=== PATIENT | male | born 1955 | race Asian ===

== ENCOUNTER 2020-02-04 11:56 | Inpatient (IN) | payer BC, SELFPAY ==
[~2020-02-04] VITALS: Ht 184.2 cm; Wt 69.5 kg
[2020-02-04] MEDS ORDERED: ACETAMINOPHEN 650 mg PER 20 mL UD PO ONE (12:15)
[2020-02-04 12:30] LABS: Basophils # (auto) 0 10 ^3/uL (0-0.2); Basophils % (auto) 0.2 % (0.0-2.0); Eosinophils # (auto) 0 10 ^3/uL (0-0.8); Lymphocytes # (auto) 0.4 10 ^3/uL (0.4-5.4); Mean Corpuscular Volume 66.9 fL (80.0-100.0); Neutrophils # (auto) 7.1 10 ^3/uL (1.6-8.6)
[2020-02-04 12:32] LABS: Eosinophils % (auto) 0.4 % (0.0-7.0); Hematocrit 39.2 % (41.0-53.0); Lymphocytes % (auto) 4.9 % (10.0-50.0); Mean Corpuscular Hemoglobin 20.5 pg (28.0-32.0); Mean Corpuscular Hgb Conc. 30.6 g/dL (32.0-36.0); Monocytes # (auto) 0.3 10 ^3/uL (0-1.3); Neutrophils % (auto) 90.5 % (37.0-80.0); Nucleated Red Blood Cells % 0.1 %; Platelet Count (auto) 152 10^3/uL (140-450); Red Blood Cells 5.86 10^6/uL (4.5-5.90); Red Cell Distribution Width 14.5 % (11.8-14.3); White Blood Cell 7.9 10^3/uL (4.4-10.8)
[2020-02-04] MEDS ORDERED: cefTRIAXone 1GM/50ML D5W 50 ML IV ONE ×2 (12:41→12:45)
[2020-02-04] MEDS ORDERED: ASPirin 81 mg TAB PO ONE (12:45)
[2020-02-04] MEDS ORDERED: AZITHROMYCIN 500MG/ 250ML 250 ML IV ONE (12:45)
[2020-02-04 12:47] LABS: Anion Gap 7 (5-15); Blood Urea Nitrogen 19 mg/dL (7-18); Carbon Dioxide 24 mmol/L (21-32); Chloride 106 mmol/L (98-107); Glucose 110 mg/dL (74-106); Magnesium 1.8 mg/dL (1.6-2.6); Potassium 3.7 mmol/L (3.5-5.1); Sodium 137 mmol/L (136-145)
[2020-02-04 12:51] LABS: Lactic Acid w/Reflex 2.1 mmol/L (0.4-2.0)
[2020-02-04 12:54] LABS: Alanine Aminotransferase 16 U/L (16-61); Alkaline Phosphatase 64 U/L (45-117); Aspartate Aminotransferase 16 U/L (15-37); BUN/Creatinine Ratio 17.8; Bilirubin, Total 1.1 mg/dL (0.2-1.0); GFR African American 89 mL/min; GFR Non-African American 74 mL/min; Total Protein 6.6 g/dL (6.4-8.2)
[2020-02-04 12:59] LABS: INR 1.05 (0.9-1.15); Partial Thromboplastin Time 29.3 sec (23.64-32.05)
[2020-02-04] MEDS ORDERED: HYDROcodone-ACET 5/325MG TAB PO PRN (15:45)
[2020-02-04] MEDS ORDERED: hydrALAZINE HCL 20 MG/ML VL IV PRN (15:45)
[2020-02-04] MEDS: DOXYCYCLINE 100MG/250ML 250 ML IV SCH (15:45)
[2020-02-04] MEDS ORDERED: ONDANSETRON HCL 4 MG/2 ML VIAL IV PRN (15:45)
[2020-02-04] MEDS ORDERED: MORPHINE SULF INJ 2 MG/ML SYRINGE 1ML IV PRN ×2 (15:45)
[2020-02-04] MEDS ORDERED: NITROGLYCERIN 0.4 MG SL TAB SL PRN (15:45)
[2020-02-04 16:42] LABS: Urine Bacteria NONE SEEN /hpf (None Seen); Urine Blood Negative /uL (Negative); Urine Mucus FEW (None Seen); Urine Specific Gravity 1.015 (1.001-1.035); Urine WBC <1 /hpf (0 - 3)
[2020-02-04 20:08] VITALS: BP 139/87
[2020-02-04] MEDS: ACETAMINOPHEN 500 MG TAB PO PRN (21:07)
[2020-02-04] MEDS ORDERED: METO25TA5 PO (21:41)
[2020-02-04 22:00] VITALS: BP 139/87
[2020-02-04] MEDS: METOPROLOL TARTRATE 25 MG TAB PO SCH (22:35)
[2020-02-04] MEDS: ATORVASTATIN 20 MG TAB PO SCH (22:35)
[2020-02-05] MEDS ORDERED: ACETAMINOPHEN 325 MG TAB PO ONE (02:15)
[2020-02-05] MEDS: SOD CHL 0.45% 1,000 ML IV SCH ×2 (02:42→14:40)
[2020-02-05] MEDS: DOXYCYCLINE 100MG/250ML 250 ML IV SCH (03:45)
[2020-02-05 06:00] VITALS: BP 98/56
[2020-02-05 06:54] LABS: Basophils # (auto) 0 10 ^3/uL (0-0.2); Eosinophils # (auto) 0 10 ^3/uL (0-0.8); Eosinophils % (auto) 0.2 % (0.0-7.0); Hematocrit 39.1 % (41.0-53.0); Hemoglobin 12.3 g/dL (13.5-17.5); Lymphocytes # (auto) 0.5 10 ^3/uL (0.4-5.4); Lymphocytes % (auto) 10.4 % (10.0-50.0); Mean Corpuscular Hgb Conc. 31.4 g/dL (32.0-36.0); Monocytes # (auto) 0.2 10 ^3/uL (0-1.3); Nucleated Red Blood Cells % 0.1 %
[2020-02-05 06:57] LABS: Basophils % (auto) 0.5 % (0.0-2.0); Mean Corpuscular Hemoglobin 21.1 pg (28.0-32.0); Monocytes % (auto) 3.7 % (0.0-12.0); Neutrophils % (auto) 85.2 % (37.0-80.0); Platelet Count (auto) 118 10^3/uL (140-450); Red Blood Cells 5.83 10^6/uL (4.5-5.90); Red Cell Distribution Width 14.7 % (11.8-14.3); White Blood Cell 4.7 10^3/uL (4.4-10.8)
[2020-02-05 07:13] LABS: Calcium 7.9 mg/dL (8.5-10.1); Potassium 3.7 mmol/L (3.5-5.1)
[2020-02-05 07:25] LABS: BUN/Creatinine Ratio 16.5
[2020-02-05 08:00] VITALS: BP 113/73
[2020-02-05] MEDS: ACETAMINOPHEN 500 MG TAB PO PRN ×2 (10:34→18:12)
[2020-02-05] MEDS: ASPirin-EC 81 mg tab PO SCH (10:34)
[2020-02-05] MEDS: METOPROLOL TARTRATE 25 MG TAB PO SCH ×2 (10:34→22:19)
[2020-02-05] MEDS: FAMOTIDINE 20 MG TAB PO SCH (10:35)
[2020-02-05 13:00] VITALS: BP 111/69
[2020-02-05] MEDS ORDERED: cefTRIAXone 1GM/50ML D5W 50 ML IV ONE (13:45)
[2020-02-05] MEDS ORDERED: GENTAMICIN SULF 0.3% OPTH(EYE) OINT 3.5GM LEFTEYE ONE (13:45)
[2020-02-05] MEDS: GENTAMICIN OPTH sol 0.3% 5ml RIGHTEYE SCH ×3 (14:41→22:20)
[2020-02-05 17:00] VITALS: BP 121/78
[2020-02-05] MEDS ORDERED: GENTAMICIN SULF 0.3% OPTH(EYE) OINT 3.5GM LEFTEYE SCH (22:00)
[2020-02-05 22:02] VITALS: BP 114/69
[2020-02-05] MEDS: ATORVASTATIN 20 MG TAB PO SCH (22:19)
[2020-02-06] MEDS: SOD CHL 0.45% 1,000 ML IV SCH ×3 (01:33→18:15)
[2020-02-06] MEDS: GENTAMICIN OPTH sol 0.3% 5ml RIGHTEYE SCH ×6 (01:33→22:20)
[2020-02-06 05:01] VITALS: BP 128/77
[2020-02-06] MEDS ORDERED: ADENOSINE 59 MG in GIVE UN-DILUTED 0 ML IV STA (08:35)
[2020-02-06 09:12] VITALS: BP 127/79
[2020-02-06] MEDS: ASPirin-EC 81 mg tab PO SCH (09:39)
[2020-02-06] MEDS: cefTRIAXone 1GM/50ML D5W 50 ML IV SCH (09:39)
[2020-02-06] MEDS: FAMOTIDINE 20 MG TAB PO SCH (09:39)
[2020-02-06] MEDS: METOPROLOL TARTRATE 25 MG TAB PO SCH ×2 (10:00→22:19)
[2020-02-06 13:00] VITALS: BP 116/74
[2020-02-06] MEDS ORDERED: AZITHROMYCIN 250 MG TAB PO ONE (16:00)
[2020-02-06 16:03] LABS: Basophils # (auto) 0 10 ^3/uL (0-0.2); Eosinophils # (auto) 0 10 ^3/uL (0-0.8); Mean Corpuscular Volume 66.7 fL (80.0-100.0); Monocytes # (auto) 0.3 10 ^3/uL (0-1.3); Neutrophils # (auto) 2.2 10 ^3/uL (1.6-8.6); White Blood Cell 3.2 10^3/uL (4.4-10.8)
[2020-02-06 16:07] LABS: Basophils % (auto) 0.7 % (0.0-2.0); Eosinophils % (auto) 1.3 % (0.0-7.0); Hematocrit 40.1 % (41.0-53.0); Hemoglobin 12.4 g/dL (13.5-17.5); Lymphocytes # (auto) 0.7 10 ^3/uL (0.4-5.4); Lymphocytes % (auto) 20.4 % (10.0-50.0); Mean Corpuscular Hemoglobin 20.6 pg (28.0-32.0); Mean Corpuscular Hgb Conc. 30.9 g/dL (32.0-36.0); Monocytes % (auto) 10.2 % (0.0-12.0); Neutrophils % (auto) 67.4 % (37.0-80.0); Nucleated Red Blood Cells % 0.3 %; Platelet Count (auto) 114 10^3/uL (140-450); Red Blood Cells 6.02 10^6/uL (4.5-5.90); Red Cell Distribution Width 14.4 % (11.8-14.3)
[2020-02-06 16:18] LABS: BUN/Creatinine Ratio 14.6
[2020-02-06 16:20] LABS: % Iron Saturation 7.4 % (20-55)
[2020-02-06 16:43] VITALS: BP 113/69
[2020-02-06] MEDS ORDERED: ENOXAPARIN SOD 80 MG/0.8ML SYRINGE SC ONE (17:30)
[2020-02-06] MEDS ORDERED: IOHEXOL 300 MG/ML 100ML BOTTLE IJ ONE (17:50)
[2020-02-06] MEDS ORDERED: IOHEXOL 350 MG/ML 100ML IJ ONE (18:10)
[2020-02-06 22:00] VITALS: BP 125/82
[2020-02-06] MEDS: ATORVASTATIN 20 MG TAB PO SCH (22:19)
[2020-02-07] MEDS: GENTAMICIN OPTH sol 0.3% 5ml RIGHTEYE SCH ×4 (02:08→14:49)
[2020-02-07 05:00] VITALS: BP 123/71
[2020-02-07 06:41] LABS: Basophils # (auto) 0 10 ^3/uL (0-0.2); Eosinophils # (auto) 0.1 10 ^3/uL (0-0.8); Mean Corpuscular Volume 66.9 fL (80.0-100.0); Neutrophils # (auto) 1.8 10 ^3/uL (1.6-8.6); White Blood Cell 3.2 10^3/uL (4.4-10.8)
[2020-02-07 06:44] LABS: Basophils % (auto) 0.9 % (0.0-2.0); Eosinophils % (auto) 2.5 % (0.0-7.0); Hematocrit 40.8 % (41.0-53.0); Hemoglobin 12.8 g/dL (13.5-17.5); Lymphocytes # (auto) 0.9 10 ^3/uL (0.4-5.4); Lymphocytes % (auto) 27.2 % (10.0-50.0); Mean Corpuscular Hemoglobin 20.9 pg (28.0-32.0); Mean Corpuscular Hgb Conc. 31.3 g/dL (32.0-36.0); Monocytes # (auto) 0.4 10 ^3/uL (0-1.3); Monocytes % (auto) 13.7 % (0.0-12.0); Neutrophils % (auto) 55.7 % (37.0-80.0); Nucleated Red Blood Cells % 0.4 %; Platelet Count (auto) 125 10^3/uL (140-450); Red Cell Distribution Width 14.4 % (11.8-14.3)
[2020-02-07 07:10] LABS: BUN/Creatinine Ratio 17.9; Calcium 8.2 mg/dL (8.5-10.1); Potassium 4.2 mmol/L (3.5-5.1)
[2020-02-07 08:00] VITALS: BP 120/70
[2020-02-07 09:00] VITALS: BP 120/70
[2020-02-07] MEDS: ASPirin-EC 81 mg tab PO SCH (09:17)
[2020-02-07] MEDS: cefTRIAXone 1GM/50ML D5W 50 ML IV SCH (09:17)
[2020-02-07] MEDS: FAMOTIDINE 20 MG TAB PO SCH (09:17)
[2020-02-07] MEDS: METOPROLOL TARTRATE 25 MG TAB PO SCH (09:18)
[2020-02-07] MEDS ORDERED: AZITHROMYCIN 250 MG TAB PO SCH (10:00)
[2020-02-07 13:03] VITALS: BP 127/82
[2020-02-07 13:32] VITALS: BP 127/82
== END 2020-02-07 15:19 | disposition home or self-care (01) | DRG 313 ==
LOC: EDBD 11:56 → ER 11:56 → TELE 11:57 → TELE-WESTW 20:01
PROVIDERS: ADMIT Nurse Practitioner Acute Care; ATTEND Internal Medicine Nephrology
DX: R07.89 Other chest pain (principal); R65.10 Systemic inflammatory response syndrome (SIRS) of non-infectious origin without acute organ dysfunction; I48.0 Paroxysmal atrial fibrillation; D50.9 Iron deficiency anemia, unspecified; I10 Essential (primary) hypertension; B95.0 Streptococcus, group A, as the cause of diseases classified elsewhere; H10.9 Unspecified conjunctivitis; Z20.828 Contact with and (suspected) exposure to other viral communicable diseases; D69.6 Thrombocytopenia, unspecified
CPT/HCPCS: 36415; 71045; 71275; 78452; 80048; 80053; 81001; 82728; 83540; 83550; 83605; 83615; 83735; 83880; 84484; 85025; 85379; 85610; 85730; 86141; 87040; 87804; 87880; 93005; 93017; 93306; 93970; 96365; 96366; 96368; 99291; G0378; J0153; J0696; J3490